=== PATIENT | female | born 1955 | race Caucasian/White ===

== ENCOUNTER → 2016-09-17 | Outpatient (CLI) | payer BC ==
[~2016-09-17] MED LIST: CALC-393; CLB/200 PO; LISIPOW PO; MULTTAB58 PO; NXM/40 PO; [UNRECOGNIZED DRUG - CODE] PO
[2016-09-17 17:40] LABS: BASO % 0.2 %; BASO ABS # 0.01 K/uL (0-0.2); COMPLETE YES; EOS % 1.6 %; HEMATOCRIT 32.2 % (37-47); LYMPH % 33.3 %; LYMPH ABS # 1.42 K/uL (1.2-3.4); MEAN CELL VOLUME 97.3 fL (80-100); MEAN CORPUSCULAR HEMOGLOBIN 32.9 pg (25-34); MEAN CORPUSCULAR HGB CONC 33.9 g/dl (32-36); MEAN PLATELET VOLUME 10.2 fL (7.4-10.4); MONO % 15.3 %; NEUT % 49.6 %; PLATELET COUNT 158 K/uL (130-400); RED BLOOD COUNT 3.31 M/uL (4.2-5.4); WHITE BLOOD COUNT 4.26 K/uL (4.8-10.8)
[2016-09-17 18:08] LABS: ALT/SGPT 19 U/L (12-78); BLOOD UREA NITROGEN 17 mg/dl (7-18); BUN/CREATININE RATIO 15.2 (10-20); CARBON DIOXIDE 25 mmol/L (21-32); CHLORIDE 105 mmol/L (98-107); GLUCOSE 73 mg/dl (70-99); POTASSIUM 4.5 mmol/L (3.5-5.1); SODIUM 138 mmol/L (136-145)
[2016-09-17 18:39] LABS: ALB/GLOB RATIO 0.3 (0.9-2); ALKALINE PHOSPHATASE 33 U/L (45-117); AST/SGOT 21 U/L (15-37); IMMUNOGLOBULN A 15.6 mg/dL (70-400); IMMUNOGLOBULN M 12.2 mg/dL (40-230)
[2016-09-19 10:06] LABS: FREE KAPPA 9.9 MG/L (3.3-19.4); FREE KAPPA/LAMBDA RATIO 0.01 (0.26-1.65); FREE LAMBDA 832.9 MG/L (5.7-26.3)
== END | disposition home or self-care (01) ==
LOC: C.RAD 16:51
PROVIDERS: ATTEND Internal Medicine Hematology & Oncology
DX: C90.00 Multiple myeloma not having achieved remission (principal)

== ENCOUNTER → 2016-10-15 | Outpatient (CLI) | payer BC ==
--- NOTE | 2016-10-15 17:49 | DIAGNOSTIC IMAGING REPORT ---
SKELETAL SURVEY COMPLETE CLINICAL HISTORY: Multiple myeloma. COMPARISON STUDY: Skeletal survey March 31, 2016. FINDINGS: No lytic lesions are identified within the bony thorax. Lungs are clear. Cardiac size is normal. No calvarial lytic lesions are identified. No lytic lesions are identified within the shoulders or visualized portions of the humeri. No lytic lesions are identified within the cervical, thoracic or lumbar spines. [id number] multilevel degenerative changes are present. There are no compression fractures. No lytic lesions are identified within the pelvis, hips or femurs. IMPRESSION: No lytic lesions identified by skeletal survey. Electronically signed by: Pasquale Monet M.D. 10/15/2016 5:48 PM Dictated Date/Time: 10/15/2016 5:42 PM
[2016-10-15 17:58] LABS: BASO % 0.5 %; BASO ABS # 0.02 K/uL (0-0.2); COMPLETE YES; EOS % 1.1 %; HEMATOCRIT 30.3 % (37-47); LYMPH % 37.9 %; LYMPH ABS # 1.65 K/uL (1.2-3.4); MEAN CELL VOLUME 97.1 fL (80-100); MEAN PLATELET VOLUME 9.7 fL (7.4-10.4); MONO % 14.3 %; NEUT % 46.2 %; PLATELET COUNT 159 K/uL (130-400); RED BLOOD COUNT 3.12 M/uL (4.2-5.4); WHITE BLOOD COUNT 4.35 K/uL (4.8-10.8)
[2016-10-15 18:19] LABS: ALKALINE PHOSPHATASE 36 U/L (45-117); ALT/SGPT 21 U/L (12-78); AST/SGOT 22 U/L (15-37); BLOOD UREA NITROGEN 16 mg/dl (7-18); BUN/CREATININE RATIO 13.7 (10-20); CALCIUM 10.3 mg/dl (8.5-10.1); CARBON DIOXIDE 25 mmol/L (21-32); CHLORIDE 105 mmol/L (98-107); GLUCOSE 77 mg/dl (70-99); POTASSIUM 4.4 mmol/L (3.5-5.1); SODIUM 137 mmol/L (136-145)
[2016-10-15 18:33] LABS: ALB/GLOB RATIO 0.3 (0.9-2)
[2016-10-15 20:33] LABS: IMMUNOGLOBULN A 12.2 mg/dL (70-400); IMMUNOGLOBULN M 10.3 mg/dL (40-230)
[2016-10-17 11:02] LABS: FREE KAPPA 9.1 MG/L (3.3-19.4); FREE KAPPA/LAMBDA RATIO 0.01 (0.26-1.65); FREE LAMBDA 1135.2 MG/L (5.7-26.3)
== END | disposition home or self-care (01) ==
LOC: C.RAD 16:49
PROVIDERS: ATTEND Internal Medicine Hematology & Oncology
DX: C90.00 Multiple myeloma not having achieved remission (principal)

== ENCOUNTER → 2016-10-27 | Outpatient (CLI) | payer BC ==
[2016-10-27 18:23] LABS: BASO % 0.5 %; BASO ABS # 0.02 K/uL (0-0.2); COMPLETE YES; EOS % 1.2 %; HEMATOCRIT 28.8 % (37-47); IG% 0.2 %; LYMPH % 34.3 %; LYMPH ABS # 1.48 K/uL (1.2-3.4); MEAN CELL VOLUME 98.6 fL (80-100); MEAN CORPUSCULAR HEMOGLOBIN 33.2 pg (25-34); MEAN CORPUSCULAR HGB CONC 33.7 g/dl (32-36); MONO % 14.6 %; NEUT % 49.2 %; PLATELET COUNT 157 K/uL (130-400); RED BLOOD COUNT 2.92 M/uL (4.2-5.4); WHITE BLOOD COUNT 4.32 K/uL (4.8-10.8)
[2016-10-27 18:49] LABS: BLOOD UREA NITROGEN 25 mg/dl (7-18); GLUCOSE 77 mg/dl (70-99)
[2016-10-27 18:50] LABS: ALT/SGPT 22 U/L (12-78); AST/SGOT 19 U/L (15-37); BUN/CREATININE RATIO 16.5 (10-20); CARBON DIOXIDE 28 mmol/L (21-32); CHLORIDE 105 mmol/L (98-107); POTASSIUM 4.4 mmol/L (3.5-5.1); SODIUM 138 mmol/L (136-145)
[2016-10-27 19:03] LABS: ALB/GLOB RATIO 0.3 (0.9-2); ALKALINE PHOSPHATASE 35 U/L (45-117)
== END | disposition home or self-care (01) ==
LOC: C.LAB 17:13
PROVIDERS: ATTEND Internal Medicine Hematology & Oncology
DX: C90.00 Multiple myeloma not having achieved remission (principal)

== ENCOUNTER → 2017-01-16 | Outpatient (CLI) | payer BC ==
[2017-01-16 16:18] LABS: BASO % 0.2 %; BASO ABS # 0.01 K/uL (0-0.2); COMPLETE YES; EOS % 0.2 %; HEMATOCRIT 38.2 % (37-47); IG% 0.2 %; LYMPH % 13.5 %; LYMPH ABS # 0.79 K/uL (1.2-3.4); MEAN CELL VOLUME 98.2 fL (80-100); MEAN CORPUSCULAR HEMOGLOBIN 32.6 pg (25-34); MEAN CORPUSCULAR HGB CONC 33.2 g/dl (32-36); MEAN PLATELET VOLUME 11.2 fL (7.4-10.4); MONO % 13.8 %; NEUT % 72.1 %; PLATELET COUNT 156 K/uL (130-400); RED BLOOD COUNT 3.89 M/uL (4.2-5.4); WHITE BLOOD COUNT 5.85 K/uL (4.8-10.8)
[2017-01-16 16:28] LABS: ALT/SGPT 24 U/L (12-78); AST/SGOT 13 U/L (15-37); BLOOD UREA NITROGEN 20 mg/dl (7-18); BUN/CREATININE RATIO 25.4 (10-20); CALCIUM 8.9 mg/dl (8.5-10.1); CARBON DIOXIDE 29 mmol/L (21-32); CHLORIDE 108 mmol/L (98-107); CREATININE 0.79 mg/dl (0.60-1.20); GLUCOSE 76 mg/dl (70-99); POTASSIUM 4.3 mmol/L (3.5-5.1); SODIUM 144 mmol/L (136-145)
[2017-01-16 16:44] LABS: ALB/GLOB RATIO 1.1 (0.9-2); ALKALINE PHOSPHATASE 59 U/L (45-117); IMMUNOGLOBULN M 27.2 mg/dL (40-230)
[2017-01-19 16:12] LABS: ALBUMIN 3.6 G/DL (3.8-4.8); FREE KAPPA 9.4 MG/L (3.3-19.4); FREE KAPPA/LAMBDA RATIO 1.08 (0.26-1.65); FREE LAMBDA 8.7 MG/L (5.7-26.3); GAMMA GLOBULIN 0.9 G/DL (0.8-1.7); MONOCLONAL PROTEIN BAND 1 0.6 G/DL (NOT DETECTED)
== END | disposition home or self-care (01) ==
LOC: C.LABBFT 12:26
PROVIDERS: ATTEND Internal Medicine Hematology & Oncology
DX: C90.00 Multiple myeloma not having achieved remission (principal)

== ENCOUNTER → 2017-01-30 | Outpatient (CLI) | payer BC ==
[2017-01-30 17:05] LABS: BASO % 0.2 %; BASO ABS # 0.01 K/uL (0-0.2); COMPLETE YES; EOS % 1.1 %; IG% 0.2 %; LYMPH % 14.9 %; LYMPH ABS # 0.67 K/uL (1.2-3.4); MEAN CELL VOLUME 96.5 fL (80-100); MEAN CORPUSCULAR HEMOGLOBIN 31.9 pg (25-34); MEAN CORPUSCULAR HGB CONC 33.1 g/dl (32-36); MEAN PLATELET VOLUME 11.6 fL (7.4-10.4); MONO % 13.3 %; NEUT % 70.3 %; PLATELET COUNT 126 K/uL (130-400); RED BLOOD COUNT 4.04 M/uL (4.2-5.4)
[2017-01-30 19:08] LABS: ALT/SGPT 27 U/L (12-78); AST/SGOT 17 U/L (15-37); BLOOD UREA NITROGEN 14 mg/dl (7-18); BUN/CREATININE RATIO 17.1 (10-20); CALCIUM 8.9 mg/dl (8.5-10.1); CARBON DIOXIDE 30 mmol/L (21-32); CHLORIDE 106 mmol/L (98-107); CREATININE 0.83 mg/dl (0.60-1.20); GLUCOSE 73 mg/dl (70-99); MAGNESIUM 2.3 mg/dl (1.8-2.4); POTASSIUM 4.1 mmol/L (3.5-5.1); SODIUM 142 mmol/L (136-145)
[2017-01-30 19:11] LABS: ALKALINE PHOSPHATASE 57 U/L (45-117)
== END | disposition home or self-care (01) ==
LOC: C.LABBFT 12:24
PROVIDERS: ATTEND Internal Medicine Hematology & Oncology
DX: C90.00 Multiple myeloma not having achieved remission (principal)

== ENCOUNTER → 2017-02-05 | Outpatient (CLI) | payer BC ==
[2017-02-05 17:42] LABS: COMPLETE YES; EOS % 0.3 %; HEMATOCRIT 38.2 % (37-47); IG% 0.2 %; LYMPH % 10.6 %; LYMPH ABS # 0.62 K/uL (1.2-3.4); MEAN CELL VOLUME 97.2 fL (80-100); MEAN CORPUSCULAR HEMOGLOBIN 31.8 pg (25-34); MEAN CORPUSCULAR HGB CONC 32.7 g/dl (32-36); MEAN PLATELET VOLUME 10.7 fL (7.4-10.4); MONO % 17.1 %; NEUT % 71.8 %; PLATELET COUNT 180 K/uL (130-400); RED BLOOD COUNT 3.93 M/uL (4.2-5.4); WHITE BLOOD COUNT 5.85 K/uL (4.8-10.8)
[2017-02-05 18:26] LABS: ALKALINE PHOSPHATASE 51 U/L (45-117); ALT/SGPT 26 U/L (12-78); BLOOD UREA NITROGEN 16 mg/dl (7-18); BUN/CREATININE RATIO 18.2 (10-20); CALCIUM 9.5 mg/dl (8.5-10.1); CARBON DIOXIDE 29 mmol/L (21-32); CHLORIDE 105 mmol/L (98-107); CREATININE 0.88 mg/dl (0.60-1.20); GLUCOSE 97 mg/dl (70-99); MAGNESIUM 2.4 mg/dl (1.8-2.4); SODIUM 141 mmol/L (136-145)
[2017-02-05 18:29] LABS: ALB/GLOB RATIO 1.1 (0.9-2); AST/SGOT 14 U/L (15-37)
== END | disposition home or self-care (01) ==
LOC: C.LABBFT 12:10
PROVIDERS: ATTEND Internal Medicine Hematology & Oncology
DX: C90.00 Multiple myeloma not having achieved remission (principal)

== ENCOUNTER → 2017-03-06 | Outpatient (CLI) | payer BC ==
[2017-03-06 17:05] LABS: COMPLETE YES; EOS % 0.7 %; HEMATOCRIT 36.5 % (37-47); LYMPH ABS # 0.65 K/uL (1.2-3.4); MEAN CELL VOLUME 96.3 fL (80-100); MEAN CORPUSCULAR HEMOGLOBIN 31.9 pg (25-34); MEAN CORPUSCULAR HGB CONC 33.2 g/dl (32-36); MEAN PLATELET VOLUME 11.5 fL (7.4-10.4); NEUT % 66.3 %; PLATELET COUNT 125 K/uL (130-400); RED BLOOD COUNT 3.79 M/uL (4.2-5.4); WHITE BLOOD COUNT 4.34 K/uL (4.8-10.8)
[2017-03-06 17:25] LABS: BLOOD UREA NITROGEN 16 mg/dl (7-18); CREATININE 0.91 mg/dl (0.60-1.20); GLUCOSE 99 mg/dl (70-99)
[2017-03-06 17:26] LABS: ALT/SGPT 24 U/L (12-78); BUN/CREATININE RATIO 17.4 (10-20); CALCIUM 9.6 mg/dl (8.5-10.1); CARBON DIOXIDE 31 mmol/L (21-32); CHLORIDE 105 mmol/L (98-107); MAGNESIUM 2.1 mg/dl (1.8-2.4); POTASSIUM 3.9 mmol/L (3.5-5.1); SODIUM 139 mmol/L (136-145)
[2017-03-06 17:27] LABS: ALB/GLOB RATIO 1.2 (0.9-2); ALKALINE PHOSPHATASE 48 U/L (45-117); AST/SGOT 16 U/L (15-37)
== END | disposition home or self-care (01) ==
LOC: C.LABBFT 12:41
PROVIDERS: ATTEND Internal Medicine Hematology & Oncology
DX: C90.00 Multiple myeloma not having achieved remission (principal)

== ENCOUNTER → 2017-05-08 | Outpatient (CLI) | payer BC ==
[2017-05-08 12:20] LABS: MEAN CELL VOLUME 97.3 fL (80-100); MEAN CORPUSCULAR HEMOGLOBIN 32.2 pg (25-34); MEAN CORPUSCULAR HGB CONC 33.1 g/dl (32-36); RED BLOOD COUNT 2.98 M/uL (4.2-5.4); WHITE BLOOD COUNT 4.84 K/uL (4.8-10.8)
[2017-05-08 12:38] LABS: ALT/SGPT 20 U/L (12-78); BLOOD UREA NITROGEN 4 mg/dl (7-18); BUN/CREATININE RATIO 5.7 (10-20); CARBON DIOXIDE 30 mmol/L (21-32); CHLORIDE 106 mmol/L (98-107); CREATININE 0.65 mg/dl (0.60-1.20); GLUCOSE 99 mg/dl (70-99); POTASSIUM 3.6 mmol/L (3.5-5.1); SODIUM 141 mmol/L (136-145)
[2017-05-08 12:41] LABS: ALKALINE PHOSPHATASE 61 U/L (45-117); AST/SGOT 19 U/L (15-37)
[2017-05-08 12:46] LABS: MEAN PLATELET VOLUME 11.2 fL (7.4-10.4); PLATELET COUNT 43 K/uL (130-400)
[2017-05-08 13:00] LABS: BASO % 0.4 %; BASO ABS # 0.02 K/uL (0-0.2); COMPLETE YES; DOHLE BODIES 1+; IG% 3.3 %; LYMPH % 23.1 %; LYMPH ABS # 1.12 K/uL (1.2-3.4); MONO % 24.8 %; NEUT % 48.4 %; PLT ESTIMATE DECREASED; TEAR DROP CELLS 1+; TOXIC GRANULATION 2+
== END | disposition home or self-care (01) ==
LOC: C.LABBFT 10:20
PROVIDERS: ATTEND Internal Medicine Medical Oncology
DX: C90.00 Multiple myeloma not having achieved remission (principal)

== ENCOUNTER → 2017-08-25 | Outpatient (CLI) | payer BC ==
[2017-08-25 17:39] LABS: BLOOD UREA NITROGEN 12 mg/dl (7-18); CALCIUM 9.2 mg/dl (8.5-10.1); CARBON DIOXIDE 27 mmol/L (21-32); CREATININE 0.95 mg/dl (0.60-1.20); GLUCOSE 106 mg/dl (70-99); POTASSIUM 3.8 mmol/L (3.5-5.1); SODIUM 139 mmol/L (136-145)
== END | disposition home or self-care (01) ==
LOC: C.LABBFT 12:30
PROVIDERS: ATTEND Internal Medicine
DX: E87.6 Hypokalemia (principal)

== ENCOUNTER → 2017-09-15 | Outpatient (CLI) | payer BC | END | disposition home or self-care (01) | LOC: C.LABBFT 12:24 | PROVIDERS: ATTEND Internal Medicine Hematology & Oncology | DX: C90.00 Multiple myeloma not having achieved remission (principal) ==

== ENCOUNTER → 2017-10-20 | Outpatient (CLI) | payer BC ==
[2017-10-20 17:39] LABS: BASO % 0.2 %; BASO ABS # 0.01 K/uL (0-0.2); EOS % 0.9 %; EOS ABS # 0.04 K/uL (0-0.5); HEMOGLOBIN 12.5 g/dL (12.0-16.0); IG# 0.01 K/uL (0.00-0.02); LYMPH % 22.6 %; LYMPH ABS # 0.97 K/uL (1.2-3.4); MEAN CELL VOLUME 94.1 fL (80-100); MEAN CORPUSCULAR HEMOGLOBIN 31.8 pg (25-34); MEAN CORPUSCULAR HGB CONC 33.8 g/dl (32-36); MEAN PLATELET VOLUME 10.8 fL (7.4-10.4); MONO % 15.3 %; MONO ABS # 0.66 K/uL (0.11-0.59); NEUT % 60.8 %; NEUT ABS # 2.61 K/uL (1.4-6.5); PLATELET COUNT 133 K/uL (130-400); RED CELL DISTRIBUTION WIDTH CV 14.1 % (11.5-14.5); RED CELL DISTRIBUTION WIDTH SD 48.3 fL (36.4-46.3)
[2017-10-20 17:49] LABS: ALBUMIN 4.1 gm/dl (3.4-5.0); BLOOD UREA NITROGEN 14 mg/dl (7-18); CALCIUM 10.1 mg/dl (8.5-10.1); CARBON DIOXIDE 28 mmol/L (21-32); CREATININE 0.87 mg/dl (0.60-1.20); GLUCOSE 79 mg/dl (70-99); SODIUM 138 mmol/L (136-145)
[2017-10-20 18:03] LABS: ALKALINE PHOSPHATASE 46 U/L (45-117); ALT/SGPT 20 U/L (12-78); AST/SGOT 19 U/L (15-37); TOTAL PROTEIN 7.6 gm/dl (6.4-8.2)
== END | disposition home or self-care (01) ==
LOC: C.LABBFT 12:24
PROVIDERS: ATTEND Internal Medicine Hematology & Oncology
DX: C90.00 Multiple myeloma not having achieved remission (principal)

== ENCOUNTER → 2018-01-01 | Outpatient (CLI) | payer BC | END | disposition home or self-care (01) | LOC: C.LABSPEC 14:43 | PROVIDERS: ATTEND Urology | DX: K59.00 Constipation, unspecified (principal) ==

== ENCOUNTER → 2018-03-16 | Outpatient (CLI) | payer BC ==
[2018-03-16 17:29] LABS: BASO % 0.2 %; BASO ABS # 0.01 K/uL (0-0.2); EOS % 1.1 %; EOS ABS # 0.05 K/uL (0-0.5); HEMATOCRIT 35.9 % (37-47); HEMOGLOBIN 12.5 g/dL (12.0-16.0); IG# 0.01 K/uL (0.00-0.02); LYMPH % 24.1 %; LYMPH ABS # 1.06 K/uL (1.2-3.4); MEAN CORPUSCULAR HEMOGLOBIN 33.4 pg (25-34); MEAN CORPUSCULAR HGB CONC 34.8 g/dl (32-36); MONO % 11.6 %; MONO ABS # 0.51 K/uL (0.11-0.59); NEUT % 62.8 %; NEUT ABS # 2.76 K/uL (1.4-6.5); PLATELET COUNT 145 K/uL (130-400); RED CELL DISTRIBUTION WIDTH CV 14.5 % (11.5-14.5); RED CELL DISTRIBUTION WIDTH SD 50.8 fL (36.4-46.3)
[2018-03-16 17:40] LABS: ALBUMIN 4.1 gm/dl (3.4-5.0); ALKALINE PHOSPHATASE 47 U/L (45-117); ALT/SGPT 26 U/L (12-78); AST/SGOT 22 U/L (15-37); BLOOD UREA NITROGEN 11 mg/dl (7-18); CALCIUM 9.6 mg/dl (8.5-10.1); CARBON DIOXIDE 29 mmol/L (21-32); CREATININE 0.81 mg/dl (0.60-1.20); GLUCOSE 109 mg/dl (70-99); POTASSIUM 3.8 mmol/L (3.5-5.1); SODIUM 139 mmol/L (136-145); TOTAL PROTEIN 7.2 gm/dl (6.4-8.2)
== END | disposition home or self-care (01) ==
LOC: C.LABBFT 14:30
PROVIDERS: ATTEND Physician Assistant Medical
DX: C90.00 Multiple myeloma not having achieved remission (principal); Z13.6 Encounter for screening for cardiovascular disorders

== ENCOUNTER → 2018-03-30 | Outpatient (CLI) | payer BC ==
[2018-03-30 17:11] LABS: BASO % 0.2 %; BASO ABS # 0.01 K/uL (0-0.2); EOS ABS # 0.05 K/uL (0-0.5); HEMATOCRIT 37.8 % (37-47); HEMOGLOBIN 12.9 g/dL (12.0-16.0); IG# 0.01 K/uL (0.00-0.02); LYMPH % 27.6 %; LYMPH ABS # 1.38 K/uL (1.2-3.4); MEAN CELL VOLUME 95.9 fL (80-100); MEAN CORPUSCULAR HEMOGLOBIN 32.7 pg (25-34); MEAN CORPUSCULAR HGB CONC 34.1 g/dl (32-36); MEAN PLATELET VOLUME 10.1 fL (7.4-10.4); MONO % 13.6 %; MONO ABS # 0.68 K/uL (0.11-0.59); NEUT % 57.4 %; NEUT ABS # 2.87 K/uL (1.4-6.5); PLATELET COUNT 151 K/uL (130-400); RED CELL DISTRIBUTION WIDTH CV 13.8 % (11.5-14.5); RED CELL DISTRIBUTION WIDTH SD 47.8 fL (36.4-46.3)
[2018-03-30 17:31] LABS: ALBUMIN 3.9 gm/dl (3.4-5.0); ALKALINE PHOSPHATASE 47 U/L (45-117); ALT/SGPT 22 U/L (12-78); AST/SGOT 21 U/L (15-37); BLOOD UREA NITROGEN 12 mg/dl (7-18); CALCIUM 9.6 mg/dl (8.5-10.1); CARBON DIOXIDE 28 mmol/L (21-32); CREATININE 0.83 mg/dl (0.60-1.20); GLUCOSE 85 mg/dl (70-99); POTASSIUM 3.9 mmol/L (3.5-5.1); SODIUM 138 mmol/L (136-145); TOTAL PROTEIN 7.3 gm/dl (6.4-8.2)
== END | disposition home or self-care (01) ==
LOC: C.LABBFT 12:38
PROVIDERS: ATTEND Internal Medicine Hematology & Oncology
DX: C90.00 Multiple myeloma not having achieved remission (principal)